=== PATIENT | female | born 1975 | race Asian ===

== ENCOUNTER → 2016-09-15 | Outpatient (CLI) | payer BC | LOC: MC.RAD 07-21 08:00 | DX: Z12.31 Encounter for screening mammogram for malignant neoplasm of breast (principal) ==

== ENCOUNTER → 2016-10-14 | Outpatient (REF) | LOC: WSOH 12:56 | DX: Z01.83 Encounter for blood typing (principal) ==

== ENCOUNTER → 2018-06-22 | Outpatient (CLI) | payer BC | LOC: MC.RAD 07:13 | DX: Z12.31 Encounter for screening mammogram for malignant neoplasm of breast (principal) ==

== ENCOUNTER → 2022-02-20 | Outpatient (CLI) | payer BC | LOC: MC.RAD 10:09 | DX: Z12.31 Encounter for screening mammogram for malignant neoplasm of breast (principal) ==